=== PATIENT | female | born 1975 | race Caucasian/White ===

== ENCOUNTER 2017-02-13 19:56 | Emergency (ER) | payer MEDICAID ==
[~2017-02-13 19:56] MED LIST: NAPR-576 PO
[2017-02-13 19:59] VITALS: BP 173/102; PULSE 87; RESP 18; TEMP 99.1; O2SAT 98
[2017-02-13] MEDS ORDERED: MORPHINE SULFATE 4 MG/ML INJ IV PUSH ONE (20:15)
[2017-02-13] MEDS ORDERED: TETANUS/DIPHTHERIA TOXOID ADULT 0.5 ML VIAL IM ONE (20:15)
[2017-02-13] MEDS ORDERED: KETOROLAC TROMETHAMINE 30 MG/ML (IVP) VIAL IV PUSH ONE (20:15)
--- NOTE | 2017-02-13 20:15 | PD ---
HPI Chief Complaint: Hot water burn to the face and chest Time Seen by Provider: 20:07 Travel History International Travel<30 days: No Contact w/Intl Traveler<30days: No Traveled to known affect area: No History of Present Illness HPI 41-year-old female complains of hot water burn to the face and upper chest. Patient states that she was boiling peanut and got burned on hot water. Patient states that the pain is severe burning pain localized to lower part of the face and upper chest. Patient denies any pain radiation. Patient denies any eye pain. Patient denies any problem with swallowing. Patient denies any shortness of breath. Patient is not up-to-date with TD booster. PFSH Past Medical History Asthma: Yes ( CHILD) Diminished Hearing: No Migraines: Yes : 2 Para: 2 Tubal Ligation: Yes Past Surgical History Section: Yes (X2) Social History Alcohol Use: No Tobacco Use: Yes (1/2 PPD) Substance Use: No Allergies-Medications (Allergen,Severity, Reaction): Coded Allergies: No Known Allergies (Verified Adverse Reaction, Unknown, 02/13/17) Reported Meds & Prescriptions Reported Meds & Active Scripts Active Review of Systems General / Constitutional: No: Fever Eyes: No: Visual changes HENT: No: Headaches Cardiovascular: No: Chest Pain or Discomfort Respiratory: No: Shortness of Breath Gastrointestinal: No: Abdominal Pain Genitourinary: No: Dysuria Musculoskeletal: No: Pain Skin: No Rash Neurologic: No: Weakness Psychiatric: No: Depression Endocrine: No: Polydipsia Hematologic/Lymphatic: No: Easy Bruising Physical Exam Narrative GENERAL: Well-nourished, well-developed patient. SKIN: Patient has redness covering the low part of face, anterior neck, upper chest. A few small blister noted on anterior chest wall. Typical of first and second-degree burn. Total burn surface area about 5%. HEAD: Normocephalic. EYES: No scleral icterus. No injection or drainage. NECK: Supple, trachea midline. No JVD or lymphadenopathy. CARDIOVASCULAR: Regular rate and rhythm without murmurs, gallops, or rubs. RESPIRATORY: Breath sounds equal bilaterally. No accessory muscle use. GASTROINTESTINAL: Abdomen soft, non-tender, nondistended. MUSCULOSKELETAL: No cyanosis, or edema. BACK: Nontender without obvious deformity. No CVA tenderness. Neurologic exam normal. Data Data Last Documented VS Vital Signs Date Time Temp Pulse Resp B/P (MAP) Pulse Ox O2 Delivery O2 Flow Rate FiO2 02/13/17 19:59 99.1 87 18 173/102 (125) 98 Room Air Orders Orders Sodium Chlor 0.9% 1000 Ml Inj (Ns 1000 M (02/13/17 20:15) Ketorolac Inj (Toradol Inj) (02/13/17 20:15) Morphine Inj (Morphine Inj) (02/13/17 20:15) Tetanus/Diphtheria Tox Adult (Tetanus/Di (02/13/17 20:15) MDM Medical Decision Making Medical Screen Exam Complete: Yes Emergency Medical Condition: Yes Differential Diagnosis Differential diagnosis including first degree burn, second-degree burn, third- degree burn. Narrative Course 41-year-old female with hot water burn to the face and neck and upper chest. Normal saline solution 1 25 cc an hour. TD booster given. Morphine 4 mg IV. Toradol 30 mg IV. Zofran 4 mg IV. Polysporin ointment to the face and neck. Silvadene cream dressing to the chest wall Diagnosis Primary Impression: Second degree burn of chest wall Qualified Codes: T21.21XA - Burn of second degree of chest wall, initial encounter Additional Impression: First degree burn of face Qualified Codes: T20.10XA - Burn of first degree of head, face, and neck, unspecified site, initial encounter Patient Instructions: General Instructions Additional Instructions: Polysporin ointment to the facial burn. Silvadene, dressing to the chest wall burn. Return in a.m. for recheck. Take pain medication as directed. Med/Other Pt SpecificInfo: Prescription(s) given Scripts Tramadol (Ultram) 50 Mg Tab 50 MG PO Q6H Y for PAIN, #20 TAB 0 Refills Prov: Bryan Villeda MD 02/13/17 Meloxicam (Mobic) 15 Mg Tab 15 MG PO DAILY for Pain, #20 TAB 0 Refills Prov: Bryan Villeda MD 02/13/17 Disposition: 01 DISCHARGE HOME Condition: Stable Bryan Villeda MD Feb 13, 2017 20:15
[2017-02-13] MEDS: SODIUM CHLOR 0.9% 1000 ML INJ 1,000 ML IV SCH ×2 (20:36→20:37)
[2017-02-13] MEDS ORDERED: MOBI15TA PO (22:12)
[2017-02-13] MEDS ORDERED: TRAM50 PO (22:12)
[2017-02-13] MEDS ORDERED: SILVER SULFADIAZINE 1% CR 50 GM JAR TOPICAL ONE (22:30)
[2017-02-14] MEDS ORDERED: SILV1CRE20 TOPICAL (13:55)
== END 2017-02-13 22:51 | disposition home or self-care (01) ==
LOC: NEPE 19:56
DX: T21.21XA Burn of second degree of chest wall, initial encounter (principal); T20.10XA Burn of first degree of head, face, and neck, unspecified site, initial encounter; Z23 Encounter for immunization; F17.200 Nicotine dependence, unspecified, uncomplicated; J45.909 Unspecified asthma, uncomplicated; X12.XXXA Contact with other hot fluids, initial encounter
CPT/HCPCS: 90714; 96372; 96374; 96375; 99284; J1885; J2270; J7030

== ENCOUNTER 2017-02-14 11:59 | Emergency (ER) | payer MEDICAID ==
[~2017-02-14] VITALS: Ht 157.5 cm; Wt 100.0 kg
[~2017-02-14 11:59] MED LIST changes: +MOBI15TA PO; +TRAM50 PO
[2017-02-14 12:03] VITALS: BP 116/85; PULSE 82; RESP 16; TEMP 98; O2SAT 97
[2017-02-14] MEDS ORDERED: SILVER SULFADIAZINE 1% CR 50 GM JAR TOPICAL ONE (13:15)
--- NOTE | 2017-02-14 13:23 | PD ---
HPI . Second-degree burn Chief Complaint: Wound/Suture/Staple Re-Check Time Seen by Provider: 12:29 Travel History International Travel<30 days: No Contact w/Intl Traveler<30days: No Traveled to known affect area: No History of Present Illness HPI 41-year-old female presents emergency department for evaluation of burn that she sustained yesterday when helping a friend with boil peanuts at a convenient store. Patient was evaluated in our facility yesterday with wound care performed and discharged home with pain management and instructions to follow up today. There is no signs or symptoms of localized infection. No fever, chills, malaise. Patient states the tramadol and Mobic we gave her for pain management as effective at relieving the pain. PFSH Past Medical History Asthma: Yes ( CHILD) Diminished Hearing: No Migraines: Yes ?: Not : 2 Para: 2 Tubal Ligation: Yes Past Surgical History Section: Yes (X2) Social History Alcohol Use: No Tobacco Use: Yes (1/2 PPD) Substance Use: No Allergies-Medications (Allergen,Severity, Reaction): Coded Allergies: No Known Allergies (Verified Adverse Reaction, Unknown, 02/13/17) Reported Meds & Prescriptions Reported Meds & Active Scripts Active Ultram (Tramadol HCl) 50 Mg Tab 50 Mg PO Q6H PRN Mobic (Meloxicam) 15 Mg Tab 15 Mg PO DAILY Review of Systems Except as stated in HPI: all other systems reviewed are Neg Physical Exam Narrative GENERAL: Well-nourished, well-developed 41-year-old female patient in no acute distress. Nontoxic appearing. SKIN: First-degree with some second-degree burn noted to her left shoulder, chest and upper arm. Blisters on left shoulder intact. HEAD: Normocephalic. Atraumatic. EYES: No scleral icterus. No injection or drainage. NECK: Supple, trachea midline. No JVD or lymphadenopathy. CARDIOVASCULAR: Regular rate and rhythm without murmurs, gallops, or rubs. RESPIRATORY: Breath sounds equal bilaterally. No accessory muscle use. GASTROINTESTINAL: Abdomen soft, non-tender, nondistended. MUSCULOSKELETAL: Full range of motion noted to bilateral upper and lower extremities. No ecchymosis, cyanosis, or edema. Data Data Last Documented VS Vital Signs Date Time Temp Pulse Resp B/P (MAP) Pulse Ox O2 Delivery O2 Flow Rate FiO2 02/14/17 12:03 98.0 82 16 116/85 (95) 97 Orders Orders Silver Sulfadia 1% Crm (50 Gm) (Silvaden (02/14/17 13:15) Ed Discharge Order (02/14/17 13:53) [facility] Medical Decision Making Medical Screen Exam Complete: Yes Emergency Medical Condition: Yes Differential Diagnosis Differential diagnoses include but not limited to second-degree burn, first- degree burn, cellulitis Narrative Course 41-year-old female presents emergency department for reevaluation of a burn she sustained yesterday and was evaluated for at our facility. Wound care performed , Silvadene dressing applied and patient discharged with a prescription for Silvadene and instructions to return the emergency Department with any signs or symptoms of infection or worsening condition. Patient discharged home. Diagnosis Primary Impression: Second degree burn of multiple sites of left upper extremity and shoulder Qualified Codes: T22.292D - Burn of second degree of multiple sites of left shoulder and upper limb, except wrist and hand, subsequent encounter Referrals: Primary Care Physician Patient Instructions: General Instructions, Second Degree Burn (ED) Additional Instructions: Please return to emergency department if your symptoms return or worsen. Follow up with your primary care provider. Keep burn clean and dry. Daily dressing changes with Silvadene. Take medications as prescribed for pain management. Med/Other Pt SpecificInfo: Prescription(s) given Scripts Silver Sulfadiazine Topical (Silvadene Topical) 1 % Cream 1 APPLIC TOPICAL DIRECTED for Wound Management, #50 GM 0 Refills Prov: Pricila Barrios 02/14/17 Disposition: 01 DISCHARGE HOME Condition: Stable Pricila Barrios Feb 14, 2017 13:23
[2017-02-14] MEDS ORDERED: SILV1CRE20 TOPICAL (13:55)
== END 2017-02-14 14:07 | disposition home or self-care (01) ==
LOC: NEPK 11:59
DX: T22.29 Burn of second degree of multiple sites of shoulder and upper limb, except wrist and hand (principal); X08.8XXD Exposure to other specified smoke, fire and flames, subsequent encounter
CPT/HCPCS: 99283

== ENCOUNTER 2017-04-24 22:26 | Emergency (ER) | payer MEDICAID ==
[~2017-04-24] VITALS: Ht 157.5 cm; Wt 100.0 kg
[~2017-04-24 22:26] MED LIST changes: -NAPR-576 PO; +SILV1CRE20 TOPICAL
[2017-04-24 22:29] VITALS: BP 127/74; PULSE 80; RESP 18; TEMP 97.5; O2SAT 99
[2017-04-25 00:18] LABS: AUTOMATED NEUTROPHIL # 6.3 TH/MM3 (1.8-7.7); BASOPHIL # 0.1 TH/MM3 (0-0.2); BASOPHIL % 0.8 % (0.0-2.0); EOSINOPHIL # 0.2 TH/MM3 (0-0.4); EOSINOPHIL % 1.7 % (0.0-4.0); HEMATOCRIT 41.4 % (35.0-46.0); HEMOGLOBIN 14.4 GM/DL (11.6-15.3); LYMPH % 31.2 % (9.0-44.0); LYMPHOCYTE # 3.3 TH/MM3 (1.0-4.8); MEAN CORPUSCULAR HEMOGLOBIN 32.1 PG (27.0-34.0); MEAN CORPUSCULAR HGB CONC 34.8 % (32.0-36.0); MEAN PLATELET VOLUME 8.7 FL (7.0-11.0); MONO % 6.7 % (0.0-8.0); MONOCYTE # 0.7 TH/MM3 (0-0.9); NEUT % 59.6 % (16.0-70.0); PLATELET COUNT 254 TH/MM3 (150-450); RED CELL DISTRIBUTION WIDTH 13.7 % (11.6-17.2); WHITE BLOOD COUNT 10.6 TH/MM3 (4.0-11.0)
[2017-04-25 00:30] LABS: BACTERIA, URINE OCC /hpf; BILIRUBIN, URINE NEG (NEG); BLOOD, URINE TRACE (NEG); GLUCOSE,URINE NEG (NEG); KETONE, URINE NEG (NEG); NITRITE,URINE NEG (NEG); PH, URINE 6.5 (5.0-8.5); SQUAMOUS EPITHELIAL CELL URINE 2 /hpf (0-5); URINE COLOR LIGHT-YELLOW (YELLW/STRAW); URINE LEUKOCYTE ESTERASE NEG (NEG)
[2017-04-25 00:56] LABS: ALBUMIN 3.9 GM/DL (3.4-5.0); ALT (GPT) 39 U/L (10-53); AST (GOT) 25 U/L (15-37); BICARBONATE 26.1 MEQ/L (21.0-32.0); BLOOD UREA NITROGEN 9 MG/DL (7-18); CHLORIDE 106 MEQ/L (98-107); GLOMERULAR FILTRATION RATE 69 ML/MIN (>89); GLUCOSE,RANDOM 89 MG/DL (74-106); SODIUM (NA) 139 MEQ/L (136-145)
[2017-04-25 00:58] LABS: ALKALINE PHOSPHATASE 111 U/L (45-117); TOTAL BILIRUBIN ADULT 0.3 MG/DL (0.2-1.0); TOTAL PROTEIN 7.8 GM/DL (6.4-8.2)
--- NOTE | 2017-04-25 04:21 | PD ---
HPI Chief Complaint: Abdominal Pain Time Seen by Provider: 04:21 Travel History International Travel<30 days: No Contact w/Intl Traveler<30days: No Traveled to known affect area: No History of Present Illness HPI 41 year-old female presents to the emergency department for complaint of sudden onset right lower quadrant abdominal pain at 12 noon on Saturday with nausea and no anorexia no vomiting no fever no chills no dysuria frequency urgency hematuria or flank pain vaginal discharge or vaginal bleeding. Patient just completed her menses cycle 1 week ago and was reportedly normal for her. Patient denies . Patient is taking no medications for symptoms. No anti-inflammatories and no acetaminophen. Patient denies any chronic medical conditions. Patient takes no prescription medications as had 2 previous C- sections. Patient rates her pain as moderate to severe but progressively worsening throughout the day and follow decided to come to the emergency room. Be evaluated around 10 or 11 PM Saturday evening. Patient is not being seen and has decided that she can wait no longer for her evaluation and would like to leave. PFSH Past Medical History Narrative Medical Asthma migraine tobacco use; nursing notes reviewed Asthma: Yes ( CHILD) Diminished Hearing: No Migraines: Yes Tetanus Vaccination: < 5 Years Influenza Vaccination: No ?: LMP: 04/18/17 : 2 Para: 2 Tubal Ligation: Yes Past Surgical History Section: Yes (X2) Social History Alcohol Use: No Tobacco Use: Yes (1/2 PPD) Substance Use: No Allergies-Medications (Allergen,Severity, Reaction): Coded Allergies: No Known Allergies (Verified Adverse Reaction, Unknown, 02/13/17) Reported Meds & Prescriptions Reported Meds & Active Scripts Active Silvadene Topical (Silver Sulfadiazine) 1 % Cream 1 Applic TOPICAL DIRECTED Ultram (Tramadol HCl) 50 Mg Tab 50 Mg PO Q6H PRN Mobic (Meloxicam) 15 Mg Tab 15 Mg PO DAILY Review of Systems Except as stated in HPI: all other systems reviewed are Neg General / Constitutional: No: Fever, Chills HENT: No: Congestion Cardiovascular: No: Chest Pain or Discomfort Respiratory: No: Shortness of Breath Gastrointestinal: Positive: Abdominal Pain, No: Vomiting, Diarrhea Genitourinary: No: Dysuria, Pelvic Pain, Flank Pain Musculoskeletal: No: Myalgias, Arthralgias Skin: No Rash Neurologic: No: Weakness Psychiatric: No: Anxiety Hematologic/Lymphatic: No: Lymph Node Enlargement Physical Exam Narrative GENERAL: Well-developed well-nourished female in no acute distress no respiratory distress without antalgic movement SKIN: Warm and dry. HEAD: Normocephalic. EYES: No scleral icterus. No injection or drainage. NECK: Supple, trachea midline. No JVD or lymphadenopathy. CARDIOVASCULAR: Regular rate and rhythm without murmurs, gallops, or rubs. RESPIRATORY: Breath sounds equal bilaterally. No accessory muscle use. GASTROINTESTINAL: Abdomen soft, right upper quadrant right lower quadrant tenderness to direct palpation without guarding or rebound, nondistended. MUSCULOSKELETAL: No cyanosis, or edema. BACK: Nontender without obvious deformity. No CVA tenderness. Data Data Last Documented VS Vital Signs Date Time Temp Pulse Resp B/P (MAP) Pulse Ox O2 Delivery O2 Flow Rate FiO2 04/25/17 04:46 04/24/17 22:29 97.5 80 18 99 Orders Orders Complete Blood Count With Diff (04/24/17 23:40) Comprehensive Metabolic Panel (04/24/17 23:40) Urinalysis - C+S If Indicated (04/24/17 23:40) Lipase (04/24/17 23:40) Labs Laboratory Tests Test 04/24/17 23:50 04/25/17 00:00 Urine Color LIGHT-YELLOW Urine Turbidity CLEAR Urine pH 6.5 Urine Specific Breese 1.003 Urine Protein NEG mg/dL Urine Glucose (UA) NEG mg/dL Urine Ketones NEG mg/dL Urine Occult Blood TRACE Urine Nitrite NEG Urine Bilirubin NEG Urine Urobilinogen LESS THAN 2.0 MG/DL Urine Leukocyte Esterase NEG Urine RBC LESS THAN 1 /hpf Urine WBC LESS THAN 1 /hpf Urine Squamous Epithelial Cells 2 /hpf Urine Bacteria OCC /hpf Microscopic Urinalysis Comment CULT NOT INDICATED White Blood Count 10.6 TH/MM3 Red Blood Count 4.50 MIL/MM3 Hemoglobin 14.4 GM/DL Hematocrit 41.4 % Mean Corpuscular Volume 92.0 FL Mean Corpuscular Hemoglobin 32.1 PG Mean Corpuscular Hemoglobin Concent 34.8 % Red Cell Distribution Width 13.7 % Platelet Count 254 TH/MM3 Mean Platelet Volume 8.7 FL Neutrophils (%) (Auto) 59.6 % Lymphocytes (%) (Auto) 31.2 % Monocytes (%) (Auto) 6.7 % Eosinophils (%) (Auto) 1.7 % Basophils (%) (Auto) 0.8 % Neutrophils # (Auto) 6.3 TH/MM3 Lymphocytes # (Auto) 3.3 TH/MM3 Monocytes # (Auto) 0.7 TH/MM3 Eosinophils # (Auto) 0.2 TH/MM3 Basophils # (Auto) 0.1 TH/MM3 CBC Comment DIFF FINAL Differential Comment Blood Urea Nitrogen 9 MG/DL Creatinine 0.90 MG/DL Random Glucose 89 MG/DL Total Protein 7.8 GM/DL Albumin 3.9 GM/DL Calcium Level 9.0 MG/DL Alkaline Phosphatase 111 U/L Aspartate Amino Transf (AST/SGOT) 25 U/L Alanine Aminotransferase (ALT/SGPT) 39 U/L Total Bilirubin 0.3 MG/DL Sodium Level 139 MEQ/L Potassium Level 3.8 MEQ/L Chloride Level 106 MEQ/L Carbon Dioxide Level 26.1 MEQ/L Anion Gap 7 MEQ/L Estimat Glomerular Filtration Rate 69 ML/MIN Lipase 169 U/L [facility] Medical Decision Making Medical Screen Exam Complete: Yes Emergency Medical Condition: Yes Medical Record Reviewed: Yes Interpretation(s) UA: Small blood Quantitative hCG: Negative CBC & BMP Diagram 04/25/17 00:00 Total Protein 7.8, Albumin 3.9, Calcium Level 9.0, Alkaline Phosphatase 111, Aspartate Amino Transf (AST/SGOT) 25, Alanine Aminotransferase (ALT/SGPT) 39, Total Bilirubin 0.3 Vital Signs Date Time Temp Pulse Resp B/P (MAP) Pulse Ox O2 Delivery O2 Flow Rate FiO2 04/25/17 04:46 04/24/17 22:29 97.5 80 18 127/74 (91) 99 Differential Diagnosis Abdominal pain, ovarian torsion, ectopic , UTI, pyelonephritis, atypical appendicitis, diverticulitis, ruptured ovarian cyst Narrative Course Specimens collected and sent for resulting; upon examination patient she does have tenderness to the right upper quadrant and right lower quadrant without guarding or rebound splint CBC is automated differential values are normal range urinalysis small amount of blood noted on examination may reflect cross contamination with menses [id number] hCG negative CBC is automated differential denies or normal range chemistries unremarkable urinalysis with hematuria Patient is aware of lab results and recommendation for CT abdomen and pelvis to assess for obstructive uropathy also to evaluate although less likely ruptured ovarian cyst ovarian torsion or atypical appendicitis patient's symptoms are abrupt in onset without anorexia fever or vomiting. Patient refuses to stay for completion of evaluation and has walked out without signing paperwork signing papers for leaving AGAINST MEDICAL ADVICE. Diagnosis Primary Impression: Left against medical advice Evangelina Trejo MD Apr 25, 2017 04:21
== END 2017-04-25 04:48 | disposition left against medical advice (07) ==
LOC: NEPC 22:26
DX: R10.31 Right lower quadrant pain (principal); F17.210 Nicotine dependence, cigarettes, uncomplicated; Z53.21 Procedure and treatment not carried out due to patient leaving prior to being seen by health care provider
CPT/HCPCS: 80053; 81001; 83690; 85025; 99283